=== PATIENT | male | born 1935 | race Caucasian/White ===

== ENCOUNTER → 2024-01-12 09:12 | Outpatient (REF) | payer MEDICARE, OTHER, SELFPAY | LOC: DHCBS MAIN 09:12 | PROVIDERS: ATTENDING PHYSICIAN Internal Medicine Cardiovascular Disease; FAMILY PHYSICIAN Family Medicine | DX: I77.810 Thoracic aortic ectasia (principal); I10 Essential (primary) hypertension | CPT/HCPCS: 93306 ==

== ENCOUNTER 2024-01-28 06:06 | Day surgery (SDC) | payer MEDICARE, OTHER, SELFPAY ==
[2024-01-24 09:22] VITALS: BMI 26.5
--- NOTE | 2024-01-24 15:49 | PTCARENOTE ---
Patients 01/24/24 GFR- 33.51, UA positive nitrates- Beatris @ Dr. Medina office notified
[2024-01-28] VITALS (16 sets, daily range): BP systolic 138–164; BP diastolic 77–96; BMI 26.5
[2024-01-28] MEDS: NSS 1000 IV (06:52)
--- NOTE | 2024-01-28 07:42 | PTCARENOTE ---
Dr. Lamas and Dr. Sanchez both aware that patient took Eliquis on 01/27/24 yesterday. No further orders.
--- NOTE | 2024-01-28 09:01 | W.PN.URO.CBU ---
Today's Communication / Plan
-
I have consulted IRad to place left PCN and possibly PCNU tube.
apprised
Assessment / Plan
-
failed left ureteral stent exchange
Diagnosis
-
Date of Service: January 28, 2024
-
Patient Diagnosis: Left Ureteral Stricture; solitary left kidney
s/p attempted/failed exchange of left ureteral stent
Post Op Day: 0
Subjective
-
comfortable in PACU
Objective
-
Vital Signs
Temp Pulse Resp BP Pulse Ox
98.0 F 73 16 155/83 95
01/28/24 06:21 01/28/24 06:21 01/28/24 06:21 01/28/24 06:21 01/28/24 06:21
Physical Exam
-
General - no acute distress
Chest - clear bilaterally
Abdomen - soft, non-tender, positive bowel sounds, no distention
Genitalia - 3-way Alonso with clear outflow at drip-rate CBI
--- NOTE | 2024-01-28 10:56 | SUR.PHASEI ---
Patient transferred to 2S. patient transferred to bed, report to Jose De Jesus, Patient restful, communicated need for fall risk precautions. with patient. Lisa Hong RN BSN.
[2024-01-28] MEDS: COLACE PO (12:44)
[2024-01-28 12:57] LABS: INR 1.03; PT 13.4 Sec (11.4-14.6)
[2024-01-28 13:48] LABS: Heparin Anti-Xa UF (UFH) 0.69 IU/mL (0.30-0.70)
[2024-01-28] MEDS: KCENTRA 140 UNIT IV (15:08)
--- NOTE | 2024-01-28 16:45 | W.PN.UPDATE ---
Update Note
Progress Note Update
- Successful placement of L PCN
- Moderate hydro on ultrasound. Nephrostogram showed dilated renal pelvis with occlusion of proximal ureter. Output somewhat dark/bloody in appearance.
- Kcentra given prior to case given recent Eliquis usage. If output remains bloody tomorrow, would wait to restart till Wednesday or Wednesday.
--- NOTE | 2024-01-28 17:27 | PTCARENOTE ---
Pt received from PACU s/p L ureteral stent removal and failed replacement. AAOx1. Pt with hx of dementia. at bedside. CBI infusing through [address] toure cath. Toure bag draining pink color urine. Pt denies any pain. IV Kcentra given for pt recent
Eliquis use. Pt sent to IR for L nephrostomy tube placement. Pt returned from IR after successful nephrostomy tube placement. Pt still denies pain at this time. VSS. Assessment documented.
[2024-01-28] MEDS: COLACE 100 MG PO (17:47)
[2024-01-29 03:20] VITALS: BP 157/94
--- NOTE | 2024-01-29 04:59 | PTCARENOTE ---
Pt confused and argumentative with staff wanting to have his CBI stopped at this time. Spoke with patient for 15 min educating him on plan and treatment but unable to comprehend . Pt's called at this time and spoke with patient who at this time
to agree on continuing with CBI. Pt has med sitter in place and resting in bed watching TV.
[2024-01-29 07:49] VITALS: BP 153/89
[2024-01-29 08:07] LABS: % Basophils 0.1 % (0-2); % Immature Granulocytes 0.5 % (0-0.5); % Lymphocytes 5.3 % (20.5-51.1); % Monocytes 5.3 % (1.7-9.3); % Neutrophils 88.8 % (42.2-75.2); Absolute Immature Granulocytes 0.1 10^3/uL (0-0.05); Absolute Lymphocytes 0.8 10^3/uL (1.2-3.4); Absolute Monocytes 0.8 10^3/uL (0.1-0.6); Absolute Neutrophils 13.3 10^3/uL (1.4-6.5); Hematocrit 39.5 % (39.0-52.0); Hemoglobin 13.6 g/dL (13.0-18.0); Mean Corp Hgb Conc. 34.4 g/dL (33.0-37.0); Mean Corpuscular Hgb 31.6 pg (27.0-31.0); Mean Corpuscular Volume 91.6 fL (80.0-94.0); Mean Platelet Volume 8.7 fL (7.4-10.4); Nucleated Red Blood Cells % 0 % (-); Platelet Count 268 10^3/uL (130-400); Red Blood Cell Count 4.31 10^6/uL (4.70-6.10)
[2024-01-29 08:25] LABS: Blood Urea Nitrogen 34 mg/dl (9-20); Calcium 9.3 mg/dl (8.4-10.2); Carbon Dioxide 21 mmol/L (22-30); Chloride 107 mmol/L (98-107); Estimated Creatinine Clearance 28 ml/min; Glucose 127 mg/dl (70-99); Potassium 4.4 mmol/L (3.5-5.1); Sodium 136 mmol/L (135-145); eGFR 35.76
[2024-01-29] MEDS: COLACE 100 MG PO ×3 (08:51→16:24)
[2024-01-29] MEDS: FLOMAX 0.400000000000000022 MG PO (08:52)
[2024-01-29] MEDS: ZESTRIL 10 MG PO (08:52)
[2024-01-29] MEDS: PROTONIX 40 MG PO (08:52)
[2024-01-29] MEDS: CARDIZEM CD 180 MG PO (08:52)
--- NOTE | 2024-01-29 10:07 | W.PN.URO.CBU ---
Today's Communication / Plan
-
Stop CBI and remove Alonso
Keep left PCN to gravity
Repeat CBC in AM 01/30/24
Await urine culture
Assessment / Plan
-
failed left ureteral stent exchange
Diagnosis
-
Date of Service: January 29, 2024
-
Patient Diagnosis: Left Ureteral Stricture; solitary left kidney
s/p attempted/failed exchange of left ureteral stent 01/29/24
Subjective
-
Comfortable
Pleasantly confused
Objective
-
Vital Signs
Temp Pulse Resp BP Pulse Ox
97.5 F 87 16 153/89 95
01/29/24 07:49 01/29/24 08:52 01/29/24 07:49 01/29/24 08:52 01/29/24 07:49
Intake and Output
01/28/24 01/29/24 01/30/24
06:59 06:59 06:59
Intake Total 1160 / 1160
Output Total 2100 / 2100 625 / 625
Balance -940 / -940 -625 / -625
Intake:
Oral fluids 985 / 985
IV fluids (Total) 175 / 175
NS 175 / 175
Output:
Urinary Drain Output (Total) 600 / 600 250 / 250
Left Nephrostomy 600 / 600 250 / 250
Urine, Alonso 375 / 375
True Urine Output from CBI 1500 / 1500
Laboratory Results
01/29/24 07:51
01/29/24 07:51
Review of Systems
-
Constitutional: No Symptoms
Respiratory: No Symptoms
Cardiac: No Symptoms
Abdomen/GI: No Symptoms
Physical Exam
-
General - well developed, well nourished, no acute distress
Abdomen - soft, non-tender, left PCN draining clear urine
Genitalia - normal with Alonso draining clear urine
Skin - warm & dry with no rash
--- NOTE | 2024-01-29 15:44 | PTCARENOTE ---
1530 removed remote video monitor, pt does not have CBI or Alonso any longer, and has not bothered nephrostomy tube.
[2024-01-29 15:57] VITALS: BP 130/76
--- NOTE | 2024-01-29 16:13 | CM ---
Patient seen at bedside with present. Patient states that patient is normally somewhat pleasantly confused and that they live in a ranch style home with no past needs for DME or VN supports. patient PCP is Dr. Do and he uses the [facility] in
[place]. Patient does not drive and his indicated that she did not feel that patient needed VN services at this time. Plan per is to go home with no needs. CM will continue to follow for discharge planning needs.
Plan; home with VN vs home with no needs.
[2024-01-29 23:25] VITALS: BP 122/72
[2024-01-30 06:29] LABS: % Basophils 0.2 % (0-2); % Eosinophils 0.2 % (0-6); % Immature Granulocytes 0.9 % (0-0.5); % Lymphocytes 14.9 % (20.5-51.1); % Monocytes 8.3 % (1.7-9.3); % Neutrophils 75.5 % (42.2-75.2); Absolute Immature Granulocytes 0.1 10^3/uL (0-0.05); Absolute Lymphocytes 1.9 10^3/uL (1.2-3.4); Absolute Neutrophils 9.4 10^3/uL (1.4-6.5); Hematocrit 37.2 % (39.0-52.0); Mean Corp Hgb Conc. 34.9 g/dL (33.0-37.0); Mean Corpuscular Volume 91.6 fL (80.0-94.0); Nucleated Red Blood Cells % 0 % (-); Platelet Count 257 10^3/uL (130-400); Red Blood Cell Count 4.06 10^6/uL (4.70-6.10); Red Cell Dist. Width 13.2 % (11.5-14.5); White Blood Cell Count 12.5 10^3/uL (4.8-10.8)
[2024-01-30 08:10] VITALS: BP 141/89
--- NOTE | 2024-01-30 08:55 | W.DS.TRANS ---
DC Summary - [employer]
-
Discharge Instructions:
Sleep Apnea Risk Low
Discharge Diagnosis/Procedures left Ureteral Stricture
Diet No restrictions
Activity No restrictions
Driving Restrictions No driving
Bathing Restrictions OK to Shower
Wound Care Left nephrostomy tube care per Interventional
Radiology
Instructions:
Stand-Alone Forms:
Changes to Home Medications: No
Discharge Medications:
DC Medications w/original date entered in [employer]
lisinopril 10 mg tablet 10 mg PO DAILY 05/31/17
tamsulosin 0.4 mg capsule 0.4 mg PO DAILY 05/31/17
diltiazem HCl 180 mg capsule,extended release 24 hr (Cartia XT) 180 mg PO DAILY #30 caps 01/20/23
apixaban 2.5 mg tablet (Eliquis) 2.5 mg PO Daily 01/25/24
omeprazole 20 mg tablet,delayed release 20 mg PO DAILY 01/25/24
Home Medication Changes
Pending Results: No
[2024-01-30] MEDS: COLACE 100 MG PO (09:26)
[2024-01-30] MEDS: PROTONIX 40 MG PO (09:26)
[2024-01-30] MEDS: CARDIZEM CD 180 MG PO (09:26)
[2024-01-30] MEDS: FLOMAX 0.400000000000000022 MG PO (09:26)
[2024-01-30] MEDS: ZESTRIL 10 MG PO (09:26)
--- NOTE | 2024-01-30 10:55 | CM ---
Patient seen at bedside with present. Patient agreed to allow CM to send referral [facility] for [facility] supports. Patient has PCP appointment tomorrow. CM will sent referral to VN via all [facility]. CM will continue to follow for discharge
planning needs.
Plan; home with [facility] pending acceptance.
== END 2024-01-30 11:32 | disposition home or self-care (01) ==
LOC: SDS 06:06
PROVIDERS: Specialist; ATTENDING PHYSICIAN Specialist; CONSULT PHYSICIAN Radiology Diagnostic Radiology
DX: N13.5 Crossing vessel and stricture of ureter without hydronephrosis (principal); Q60.0 Renal agenesis, unilateral
CPT/HCPCS: 52332; 50432; 74420; 76000; 80048; 85025; 85520; 85610; 87086; 99152; C1729; C1769; C2617; J7168

== ENCOUNTER → 2024-02-14 08:23 | Outpatient (REF) | payer MEDICARE, OTHER, SELFPAY ==
[2024-02-14 08:40] VITALS: BP 134/79; BP_SYST 81
[2024-02-14 10:32] VITALS: BP 134/83; BP_SYST 73
== END ==
LOC: RADI 08:23
PROVIDERS: ATTENDING PHYSICIAN Specialist; FAMILY PHYSICIAN Family Medicine
DX: Z46.6 Encounter for fitting and adjustment of urinary device (principal); N13.5 Crossing vessel and stricture of ureter without hydronephrosis
CPT/HCPCS: 50434; 99152; C1769; C1887

== ENCOUNTER 2024-02-18 11:52 | Emergency (ER) | payer MEDICARE, OTHER, SELFPAY ==
[2024-02-18 11:59] VITALS: BP 146/90; BMI 24.4
[2024-02-18 13:00] VITALS: BP 129/73
[2024-02-18 13:00] LABS: % Basophils 0.4 % (0-2); % Eosinophils 0.6 % (0-6); % Immature Granulocytes 0.5 % (0-0.5); % Lymphocytes 8.6 % (20.5-51.1); % Monocytes 8.2 % (1.7-9.3); % Neutrophils 81.7 % (42.2-75.2); Absolute Basophils 0.1 10^3/uL (0-0.2); Absolute Eosinophils 0.1 10^3/uL (0-0.7); Absolute Immature Granulocytes 0.1 10^3/uL (0-0.05); Absolute Lymphocytes 1.2 10^3/uL (1.2-3.4); Absolute Monocytes 1.2 10^3/uL (0.1-0.6); Absolute Neutrophils 11.7 10^3/uL (1.4-6.5); Hematocrit 38.4 % (39.0-52.0); Hemoglobin 13.6 g/dL (13.0-18.0); Mean Corp Hgb Conc. 35.4 g/dL (33.0-37.0); Mean Corpuscular Hgb 31.6 pg (27.0-31.0); Mean Corpuscular Volume 89.3 fL (80.0-94.0); Mean Platelet Volume 8.5 fL (7.4-10.4); Nucleated Red Blood Cells % 0 % (-); Platelet Count 281 10^3/uL (130-400); Red Cell Dist. Width 12.7 % (11.5-14.5); White Blood Cell Count 14.3 10^3/uL (4.8-10.8)
[2024-02-18 13:20] LABS: ALT (SGPT) 13 U/L (0-50); AST (SGOT) 22 U/L (17-59); Alkaline Phosphatase 77 U/L (38-126); Blood Urea Nitrogen 24 mg/dl (9-20); Calcium 9.4 mg/dl (8.4-10.2); Carbon Dioxide 22 mmol/L (22-30); Chloride 101 mmol/L (98-107); Estimated Creatinine Clearance 31 ml/min; Glucose 119 mg/dl (70-99); Potassium 4.3 mmol/L (3.5-5.1); Sodium 133 mmol/L (135-145); Total Bilirubin 0.8 mg/dl (0.2-1.3); Total Protein 6.8 g/dl (6.3-8.2); eGFR 35.76
[2024-02-18 13:30] LABS: Urine Albumin 1+ (Neg - Trace); Urine Bilirubin Negative (Negative); Urine Character Clear (Clear); Urine Color Yellow; Urine Glucose Negative (Negative); Urine Ketone Negative (Negative); Urine Leukocyte 1+ (Negative); Urine Nitrite Negative (Negative); Urine Occult Blood 4+ (Negative); Urine Urobilinogen Negative (Neg - 1+)
[2024-02-18 13:57] LABS: Urine Mucus Few
[2024-02-18 14:00] VITALS: BP 123/77
[2024-02-18 14:01] LABS: Urine Amorphous Seen; Urine Bacteria Few (Negative)
[2024-02-18 14:04] LABS: Urine Red Blood Cell 40-50 /HPF (0-2)
--- NOTE | 2024-02-18 14:29 | ED.GENMED ---
Addendum entered and electronically signed by Patrick Maldonado Jr., PA-C 02/21/24 08:46:
Patient's urine culture positive for Enterococcus faecalis. Concern the patient has a solitary kidney and nephrostomy tube plan to treat with antibiotics and close follow-up.
Original Note:
History of Present Illness
General
Chief Complaint: Male Genito-Urinary Symptoms
Source: patient and spouse
Exam Limitations: none
Time Seen by Provider: 02/18/24 13:04
Nursing documentation reviewed up to this point in time: agreed with
Travel History
Have you had any contact with someone who has COVID-19?: No
Do you have any symptoms of coronavirus? Fever > 100 degrees, chills, cough, shortness of breath, sore throat, loss of taste or smell, muscle aches, or headache?: No
History of Present Illness
History of Present Illness:
88-year-old male with Jie history of A-fib currently on Eliquis, hypertension, renal cancer status post nephrectomy on the right side with solitary left kidney with current nephrostomy tube in place. Placed a few weeks ago. Today seem to be
somewhat more tired than usual according to his home visiting but he denies any specific symptoms. Denies fevers chest pain shortness of breath did have occasional cough
Review of Systems
Review of Systems
Allergies reviewed?: Yes
All Other Systems: ROS reviewed and negative except as documented in HPI and ROS
Phy Exam
Physical Exam
Physical Exam:
GENERAL: Alert , in no apparent distress
EYE: pupils equal and reactive
NECK: Supple, no significant adenopathy.
ENT: o/p clr, mmm.
CARDIAC: Regular rate and rhythm .
LUNGS: Clear breath sounds bilaterally, no acute respiratory distress, no wheezes/rales/rhonchi
ABDOMEN: Left flank nephrostomy tube in place patent draining soft, without focal tenderness, no r/g, no cvat
NEUROLOGICAL: Alert and oriented, no focal neuro deficits
SKIN: Warm and dry, skin intact.
MUSCULOSKELETAL: No edema, well perfused.
PSYCH: Normal and appropriate interaction.
Course
Orders/Labs/Results
Orders:
Orders
02/18/24 12:52
CMP [Comprehensive Metabolic Panel] Urgent
Complete Blood Count/With Diff Urgent
Free T4 Urgent
TSH Urgent
02/18/24 13:09
Urinalysis Reflex To Culture Urgent
Date Specimen was Collected: 02/18/24
Time Specimen was Collected: 13:07
Urine Microscopic Reflex Cult Urgent
Urine Culture Urgent
KEELY Source: U
Specimen Description:
Date Specimen was Collected: 02/18/24
Time Specimen was Collected: 13:07
02/18/24 13:21
Add On- LAB Urgent
Tests Added?: tsh free t4
EKG [Electrocardiogram (*1)] Urgent
Reason for Study: Fatigue / Weakness
Electrocardiogram (*1) Urgent
Reason for Study: Fatigue / Weakness
02/18/24 14:20
Ambulate Patient-Treatment ONCE
02/18/24 14:30
Chest [CR Chest - 2 Views ] Urgent
Comment:
Reason For Exam: cough
Abnormal Lab Results
02/18/24 02/18/24
12:52 13:09
WBC 14.3 H 10^3/uL
(4.8-10.8)
RBC 4.30 L 10^6/uL
(4.70-6.10)
Hct 38.4 L %
(39.0-52.0)
MCH 31.6 H pg
(27.0-31.0)
Abs Immat Gran (auto) 0.1 H 10^3/uL
(0-0.05)
Absolute Neuts (auto) 11.7 H 10^3/uL
(1.4-6.5)
Absolute Monos (auto) 1.2 H 10^3/uL
(0.1-0.6)
Neutrophils % 81.7 H %
(42.2-75.2)
Lymphocytes % 8.6 L %
(20.5-51.1)
Sodium 133 L mmol/L
(135-145)
BUN 24 H mg/dl
(9-20)
Creatinine 1.8 H mg/dL
(0.7-1.3)
Glucose 119 H mg/dl
(70-99)
Ur Occult Blood Reflex 4+ A
(Negative)
Leukocyte Esterase Rfl 1+ A
(Negative)
Urine RBC 40-50 A /HPF
(0-2)
Urine Bacteria (Reflex) Few A
(Negative)
Urine Albumin (Reflex) 1+ A
(Neg - Trace)
02/18/24 12:52
02/18/24 12:52
Vital Signs
Initial and Last Documented VS:
Initial Vital Signs
Temp Pulse Resp BP Pulse Ox
99.0 F 91 16 146/90 99
02/18/24 11:59 02/18/24 11:59 02/18/24 11:59 02/18/24 11:59 02/18/24 11:59
Last Documented Vital Signs
Temp Pulse Resp BP Pulse Ox
99.0 F 82 20 123/77 94
02/18/24 11:59 02/18/24 14:30 02/18/24 14:30 02/18/24 14:00 02/18/24 14:30
MDM/Problems Addressed
MDM/Problems Addressed:
80-year-old male presenting to the emergency department after he had some subtle fatigue earlier today on arrival vital signs normal patient no distress nephrostomy tube draining clear yellow urine white count slightly elevated 14.3 however this has
been elevated for multiple weeks without significant change. Creatinine level at baseline urinalysis not consistent with infection there are some red blood cells. Otherwise patient was walked here claims that he felt very well and did not have any
ongoing symptoms. He will follow-up closely as an outpatient and return for any worsening symptoms.
*Critical Care Note
Total Time (30-74mins, 75-104mins- exclusive of procedures): Not Applicable
ED Attending Note
-
Portions of this chart may have been created with voice recognition software.� Occasional wrong word or��sound alike� substitutions may have occurred due to the inherent limitations of voice recognition software.
Discharge Plan
Departure
Patient Disposition: Home (Routine Discharge)
Date of Disposition: 02/18/24
Time of Disposition: 15:44
Patient with high blood pressure during this ER visit?: No
Condition: Good
Covid-19: Not Applicable
Discharge Problem:
Fatigue
Instructions: Fatigue (DC)
Prescriptions:
No Action
tamsulosin 0.4 MG capsule
0.4 mg PO DAILY
lisinopril 10 MG tablet
10 mg PO DAILY
diltiazem HCl [Cartia XT] 180 mg capsule,extended release 24hr
180 mg PO DAILY Qty: 30 5RF
omeprazole 20 mg Tablet,Delayed Release (Dr/Ec)
20 mg PO DAILY
Eliquis 2.5 mg tablet
2.5 mg PO Daily
Referrals:
Cal Do MD [Family Provider] -
Activity Restrictions/Additional Instructions:
You came to the emergency department today with concerns of vague symptoms prior to arrival. Here your reassuring evaluation. Please go closely with your outpatient doctors and urologist. Return to the emergency department immediately for any
progressive, recurrent or worsening symptoms.
Interventions
Interventions:
*Risk Screen - Suicide Last Done: 02/18/24 11:59
*General Assessment Last Done: 02/18/24 12:41
*Neglect/Abuse Screening Last Done: 02/18/24 11:59
ED- Fall Risk Assessment Last Done: 02/18/24 12:43
*ED COVID-19 Vaccine History Last Done: 02/18/24 11:59
ED-Male Genitourinary Assessment Last Done: 02/18/24 12:41
Discharge Date and Time
Print Language: YAKUT
[2024-02-18 14:51] LABS: Free T4 0.93 ng/dl (0.78-2.19)
[2024-02-18 15:05] LABS: TSH 3.74 uIU/ml (0.47-4.68)
[2024-02-18 17:17] VITALS: BP 123/69
== END 2024-02-18 17:19 | disposition home or self-care (01) ==
LOC: EMR 11:52
PROVIDERS: EMERGENCY PHYSICIAN Emergency Medicine; FAMILY PHYSICIAN Family Medicine
DX: R53.83 Other fatigue (principal); I48.91 Unspecified atrial fibrillation; I10 Essential (primary) hypertension; Z79.01 Long term (current) use of anticoagulants; Z85.528 Personal history of other malignant neoplasm of kidney; Z90.5 Acquired absence of kidney
CPT/HCPCS: 99283; 71046; 80053; 81003; 81015; 84439; 84443; 85025; 87077; 87086; 87186; 93005

== ENCOUNTER 2024-03-10 06:04 | Day surgery (SDC) | payer MEDICARE, OTHER, SELFPAY ==
--- NOTE | 2024-03-07 13:16 | PTCARENOTE ---
CXR reviewed by Dr. Sherman, no actions were requested.
[2024-03-10] VITALS (11 sets, daily range): BP systolic 135–149; BP diastolic 76–88; BMI 25.5
[2024-03-10] MEDS: NORMOSOL-R 1000 IV (06:25)
[2024-03-10] MEDS: LEVAQUIN 250 MG PO (09:38)
== END 2024-03-10 09:50 | disposition home or self-care (01) ==
LOC: SDS 06:04
PROVIDERS: ATTENDING PHYSICIAN Specialist
DX: N13.5 Crossing vessel and stricture of ureter without hydronephrosis (principal)
CPT/HCPCS: 52344; 52332; 74420; 76000; C1894; C2617

== ENCOUNTER → 2024-06-08 12:18 | Outpatient (REF) | payer MEDICARE, OTHER, SELFPAY | LOC: HWRAD 12:18 | PROVIDERS: ATTENDING PHYSICIAN Student in an Organized Health Care Education/Training Program; FAMILY PHYSICIAN Family Medicine | DX: R05.1 Acute cough (principal) | CPT/HCPCS: 71046 ==

== ENCOUNTER → 2024-06-12 11:01 | Outpatient (REF) | payer MEDICARE, OTHER, SELFPAY | LOC: HWRAD 11:01 | PROVIDERS: ATTENDING PHYSICIAN Student in an Organized Health Care Education/Training Program | DX: R93.89 Abnormal findings on diagnostic imaging of other specified body structures (principal); R91.1 Solitary pulmonary nodule | CPT/HCPCS: 71250 ==

== ENCOUNTER 2024-06-26 06:33 | Day surgery (SDC) | payer MEDICARE, OTHER, SELFPAY ==
[2024-06-26] VITALS (11 sets, daily range): BP systolic 126–164; BP diastolic 79–118; BMI 25.5
== END 2024-06-26 15:06 | disposition home or self-care (01) ==
LOC: SDS 06:33
PROVIDERS: ATTENDING PHYSICIAN Internal Medicine Critical Care Medicine
DX: R91.8 Other nonspecific abnormal finding of lung field (principal); R91.1 Solitary pulmonary nodule; C34.01 Malignant neoplasm of right main bronchus
CPT/HCPCS: 31629; 31624; 31623; 31654; 88173; 88305; 87015; 87070; 87102; 87116; 87205; 88112; 88333; 88334; 88341; 88342